=== PATIENT | male | born 1980 | race Caucasian/White ===

== ENCOUNTER 2017-03-16 11:32 | Emergency (ER) | payer SELFPAY ==
--- NOTE | 2017-03-16 12:03 | ED Physician Documentation ---
Nausea/Vomiting/Diarrhea - HISTORIAN Historian: patient - [facility] Chief Complaint: Nausea,Vomiting,Diarrhea Onset: days ago (started yesterday) Duration: other (improved today) Timing: gradual onset Severity: mild Further Comments: yes - Associated Symptoms Vomiting: other (last episode was yesterday) Diarrhea: mild, watery. denies: bloody, blood-streaked Abdominal Pain: cramping - ROS CONST: denies: fever, chills - PAST HX Past History: none Allergies/Adverse Reactions: Allergies Allergy/AdvReac Type Severity Reaction Status Date / Time No Known Allergies Allergy Verified 03/16/17 11:50 Home Medications: Ambulatory Orders Medication Instructions Recorded NK [NK] 06/12/14 - SOCIAL HX Smoking History: greater than 1 pack/day Alcohol Use: none Drug Use: none - FAMILY HX Family History: none - VITAL SIGNS Vital Signs: Vital Signs Temp Pulse Resp BP Pulse Ox 151/90 06/12/14 21:07 - REVIEWED ASSESSMENTS Nursing Assessment Reviewed: Yes Vitals Reviewed: Yes Nausea Physical Exam - EXAM General Appearance: no acute distress, alert Neck: normal inspection Respiratory: no resp distress, chest non-tender, breath sounds normal. No: wheezes, rales, rhonchi CVS: reg rate & rhythm, heart sounds normal, equal pulses, no murmur Abdomen: No: non-tender, no organomegaly, tenderness, guarding, rebound Skin: warm/dry, normal color Neuro/Psych: oriented X3, mood/affect nml, cognition normal Discharge Clincal Impression: Viral gastroenteritis Referrals: Primary Doctor,No [Primary Care Provider] - 2 Days Additional Instructions: Drink a lot of fluids. If you start having some more problems with nausea or vomiting to call me. Home Medications: Ambulatory Orders NK [NK] 06/12/14 Condition: Stable Disposition: HOME, SELF-CARE Decision to Admit: NO Date of Decison to Admit: 03/16/17 Decision Time: 11:56
[2017-03-16 12:05] VITALS: BP 131/89
== END 2017-03-16 12:03 | disposition home or self-care (01) ==
LOC: ED 11:32
DX: A08.4 Viral intestinal infection, unspecified (principal); F17.210 Nicotine dependence, cigarettes, uncomplicated
CPT/HCPCS: 99283